=== PATIENT | male | born 1950 | race African-American/Black ===

== ENCOUNTER 2016-09-20 18:54 | Observation (INO) | payer OTHER ==
--- NOTE | ~2016-09-20 | HP ---
Unit #: [id number] #: [id number] Patient: FAUSTO LAYTON [id number] [facility] [address] [facility]. [place], [place] [address] [id number] I MR#: [id number] NAME: FAUSTO LAYTON ROOM: 337 Age: 66 Sex: M Admission Date: 09/20/2016 : 1950 Attending Physician: Sonia Ball M.D. Primary Care Physician: Fausto Vegas M.D. HISTORY AND PHYSICAL CHIEF COMPLAINT Abnormal labs/hyperkalemia. DISCUSSION This is a 66-year-old gentleman with history of hypertension, gout, peptic ulcer disease, GERD, tobacco abuse, history of chronic kidney disease. His labs were done yesterday by his primary physician, and he was called today for abnormal labs and to go to the emergency room. He went to [facility], and he was found on his lab work to have potassium of 6, BUN 46, creatinine 1.72. His creatinine was (1) . The patient has been transferred here to [facility], but I do not see any reason why he was transferred from [facility]. At this time, he is denying any complaint. He feels better. The patient was given Kayexalate in the emergency room. I will repeat a potassium at this time, but he is denying any other complaints. PAST MEDICAL HISTORY 1. History of chronic kidney disease. 2. Hypertension. 3. History of gout. 4. History of GERD, peptic ulcer disease. 5. Tobacco abuse. PAST SURGICAL HISTORY He said he had stomach surgery for ulcers 2 years ago. Denies any other surgery. SOCIAL HISTORY He said he smokes 7-8 cigarettes daily. He drinks a few beers on a daily basis. FAMILY HISTORY Denies any history of chronic kidney disease, hypertension, diabetes in the family. MEDICATIONS FROM HOME 1. Naproxen 500 mg b.i.d. 2. Cyanocobalamin 1,000 mcg p.o. daily. 3. Amlodipine/olmesartan 10/20 one tablet daily. 4. Ferrous sulfate 325 daily. 5. Allopurinol 100 mg daily. 6. Prilosec 40 mg daily. 7. Thiamine 100 mg daily. Unit #: [id number] #: [id number] Patient: FAUSTO LAYTON REVIEW OF SYSTEMS All review of systems is negative except as in history of present illness. PHYSICAL EXAMINATION GENERAL: Middle-aged man lying in bed comfortably, currently not in any distress. He is alert, awake, oriented x3. CURRENT VITALS: Temp is 98.4, heart rate 81, respirations 20, blood pressure 185/94, oxygen 100% on room air. HEENT: Pupils are equal and reactive to light and accommodation. Head is normocephalic and atraumatic. NECK: Neck is supple. No JVD. HEART: S1, S2. Regular rate and rhythm. ABDOMEN: Abdomen is soft, nontender, nondistended. Bowel sounds are positive. EXTREMITIES: Inspection is normal. No cyanosis. No clubbing. No edema. NEUROLOGIC: No focal neurologic deficits. DIAGNOSTIC STUDIES LABORATORY WORKUP (from [facility]): Sodium 133, potassium 6, chloride 110, CO2 17, anion gap 6, glucose 95, BUN 46, creatinine 1.72. ASSESSMENT AND PLAN 1. Acute on chronic kidney disease. Start the patient on IV fluids. Reevaluate in the morning. 2. Hyperkalemia. The patient was given Kayexalate and calcium gluconate in the emergency room. I will repeat basic metabolic panel at this time. Repeat basic metabolic panel in the morning. 3. History of chronic kidney disease. 4. Hypertension. I will hold angiotensin-converting enzyme inhibitor and place on hydralazine on a p.r.n. basis. 5. History of gout. 6. History of gastroesophageal reflux disease/peptic ulcer disease, on omeprazole. 7. Tobacco abuse. 8. Deep vein thrombosis prophylaxis. Will place the patient on sequential compression devices. Dictated by Jesús Salazar TD: 09/21/2016 11:25 JOB #: [id number] HISTORY AND PHYSICAL Page 1 of 1 X X HISTORY AND PHYSICAL
--- NOTE | ~2016-09-20 | DS ---
Unit #: [id number] #: [id number] Patient: DAYANARA LAYTON [id number] [address] [address] [id number] I MR#: [id number] NAME: DAYANARA LAYTON ROOM: 337 Age: 66 Sex: M Admission Date: 09/20/2016 : 1950 Discharge Date: 09/21/2016 Attending Physician: Sonia Ball M.D. Primary Care Physician: Dayanara Vegas M.D. DISCHARGE SUMMARY PRINCIPAL DIAGNOSES 1. Hyperkalemia secondary to medications. 2. Hwbne-nm-fqqcrrr kidney disease. SECONDARY DIAGNOSES 1. Hypertension. 2. Gout. 3. History of gastroesophageal reflux disease and peptic ulcer disease. DISCHARGE MEDICATIONS 1. Cyanocobalamin 1000 mcg p.o. daily. 2. Amlodipine 10 mg daily. 3. Ferrous sulfate 325 mg p.o. b.i.d. 4. Allopurinol 100 mg daily. 5. Prilosec 40 mg daily. 6. Thiamine 100 mg daily. Medications that are being discontinued are: 1. Olmesartan 2. Naproxen. HISTORY OF PRESENT ILLNESS/HOSPITAL COURSE Mr. Layton is a 66-year-old gentleman with a history of hypertension, gout, peptic ulcer disease and chronic kidney disease. He saw his primary care physician approximately two days ago and he was told that he was found to have a potassium of 6, BUN 46 and creatinine of 1.72. The patient was sent to the [facility], where he was evaluated and then transferred over to [facility]. The patient had remained asymptomatic throughout the day. He received a dose of Kayexalate and IV fluids. His labs at [facility] confirmed a sodium of 133, potassium 6 and chloride of 110 with a CO2 of 17. Creatinine was 1.72. Labs today, after treatment, showed potassium of 4.3, chloride 114, CO2 18, creatinine 1.7, BUN 40, calcium 38.3 and sodium 141. The patient has been urinating without difficulty. He denies any problems. 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 At this time the patient's vital signs show temperature 98.5, heart rate 70, respiratory rate 16 and blood pressure 155/103 with an oxygen saturation of 100% on room air. We will restart the patient on amlodipine, but we will hold olmesartan, which is considered to be the culprit for the elevation of the potassium. He is also instructed to eat a low-potassium diet and have a close followup with his primary care physician. The patient wants to go home today and he is considered to be stable enough for discharge. He will receive a dose of hydralazine prior to discharge to control his blood pressure a little Unit #: [id number] #: [id number] Patient: DAYANARA LAYTON. DISCHARGE CONDITION Improved. DISPOSITION The patient is being discharged home. FOLLOWUP The patient needs to follow up with his primary care physician, Dr. Vegas, within a week. Dictated by... Patrick Sage M.D. KEMAR/tiffani TD: 09/22/2016 09:32 JOB #: [id number] DISCHARGE SUMMARY Page 1 of 1 X X DISCHARGE SUMMARY
[2016-09-20] MEDS ORDERED: NAPROXEN PO (21:35)
[2016-09-20] MEDS ORDERED: AMLODIPINE-OLM1 EAC1 PO (21:36)
[2016-09-20] MEDS ORDERED: FERROUS SULFATE PO (21:36)
[2016-09-20] MEDS ORDERED: CYANOCOBALAMIN5 GM PO (21:36)
[2016-09-20] MEDS ORDERED: THIAMINE HCL100 M1 (21:37)
[2016-09-20] MEDS ORDERED: PRILOSEC PO (21:37)
[2016-09-20] MEDS ORDERED: THIAMINE HCL100 M1 PO (21:37)
[2016-09-20] MEDS ORDERED: ZYLOPRIM PO (21:37)
[2016-09-21 00:14] LABS: BUN/CREATININE RATIO 23.88; CALCIUM SERUM 8.8 mg/dL (8.4-10.2); CREATININE SERUM 1.8 mg/dL (0.6-1.4); GLOM FILT RATE Estimated 45.1 mL/min (>60); POTASSIUM 4.5 mmol/L (3.5-5.1)
[2016-09-21 06:28] LABS: BASOPHIL% 0.7 % (0-2.5); EOSINOPHIL# 0.2 X10e3 (0-0.7); EOSINOPHIL% 3.2 % (0.0-7.0); HEMATOCRIT 35.2 % (38.0-50.0); HEMOGLOBIN 11.3 gm/dL (13.0-16.0); LYMPHOCYTE% 18.7 % (17.0-45.0); MEAN CELL VOLUME 89.4 FL (83-96); MEAN CORPUSCULAR HEMOGLOBIN 28.6 PG (28-34); MONOCYTE# 0.7 X10e3 (0-1.0); MONOCYTE% 13.7 % (3.0-12.0); NEUTROPHIL# 3.5 X10e3 (1.5-7.1); NEUTROPHIL% 63.7 % (40-75); PLATELET COUNT 274 X10e3 (140-420); RED BLOOD COUNT 3.93 X10e (3.90-5.60); WHITE BLOOD COUNT 5.4 X10e3 (4.0-10.5)
[2016-09-21 06:34] LABS: DIFF IND NO
[2016-09-21 06:51] LABS: BUN/CREATININE RATIO 23.52; CALCIUM SERUM 8.3 mg/dL (8.4-10.2); CREATININE SERUM 1.7 mg/dL (0.6-1.4); GLOM FILT RATE Estimated 48.3 mL/min (>60); POTASSIUM 4.3 mmol/L (3.5-5.1)
[2016-09-21] MEDS ORDERED: AMLODIPINE BESY10 MG PO (13:16)
== END 2016-09-21 14:46 | disposition home or self-care (01) ==
LOC: C3A PCU 21:22
PROVIDERS: Internal Medicine
DX: E87.5 Hyperkalemia (principal); T50.905A Adverse effect of unspecified drugs, medicaments and biological substances, initial encounter; I13.10 Hypertensive heart and chronic kidney disease without heart failure, with stage 1 through stage 4 chronic kidney disease, or unspecified chronic kidney disease; N18.9 Chronic kidney disease, unspecified; Z87.11 Personal history of peptic ulcer disease; F17.210 Nicotine dependence, cigarettes, uncomplicated; M10.9 Gout, unspecified
CPT/HCPCS: 80048; 85025; G0378